=== PATIENT | male | born 1985 | race Caucasian/White ===

== ENCOUNTER 2021-04-12 04:37 | Emergency (ER) | payer OTHER ==
[~2021-04-12] VITALS: Ht 177.8 cm; Wt 99.8 kg
[2021-04-12 04:40] VITALS: BP 124/88
== END 2021-04-12 05:05 | disposition left against medical advice (07) ==
LOC: ER 04:43
DX: R07.89 Other chest pain (principal); Z53.21 Procedure and treatment not carried out due to patient leaving prior to being seen by health care provider